=== PATIENT | female | born 1985 | race Caucasian/White ===

== ENCOUNTER 2018-12-20 14:40 | Outpatient (REF) | payer MEDICAID, SELFPAY ==
--- NOTE | 2018-12-20 14:20 | PAPFT_PTH ---
PATIENT: DUYEN GROSS LOC: [facility] U#:[id number] AGE/SX: 33/F ROOM: RE12/20/[address]: Manjula Rodrigues : 1985 BED: DIS: 12/20/2018 SPEC #: [id number] RECD: 12/21/18 12:39 STATUS: CLAUDETTE REQ #: [id number] VIOLETA: 12/20/18 14:[address]: Manjula Rodrigues DEPT: [facility] Cytology RECD BY: Alanna Fairchild ENTERED: 12/21/18 12:40 SP TYPE: PAPFT OTHR DR: Glenn Matamoros Tissues: 1 - CX/ENDOCX FOR PAP SMEARS Procedures: PAP THIN PREP/[facility] Screening Comments: [id number] (UNSATISFACTORY FOR EVALUATION)
[2018-12-20 21:38] LABS: Absolute Basophil Count 0.02 k/cumm (0.0-0.2); Absolute Monocyte Count 0.49 k/cumm (0.11-0.7); Absolute Neutrophil Count 3.73 k/cumm (1.2-6.7); Basophils % 0.3; Eosinophils % 2.9; HCT 39.7 % (36.0-46.0); HGB 13.2 g/dL (12.0-15.5); Lymphocytes % 35.1; Mean Corp. HGB Concentration 33.2 g/dL (32.0-36.0); Mean Corpuscular Hemoglobin 30.1 pg (27.0-33.0); Mean Corpuscular Volume 90.6 fL (80-95); Mean Platelet Volume 11.1 fL (8.0-11.0); Monocytes % 7.2; Neutrophils % 54.5; Platelet Count 306 x1000/uL (130-400); RBC 4.38 m/cumm (4.00-5.20); RBC Distribution Width 13.5 % (11.7-14.6); White Blood Cell Count 6.84 k/cumm (4.4-10.8)
== END 2018-12-20 15:00 ==
LOC: NCHCN 14:40
PROVIDERS: PCP Family Medicine; Visit Provider Registered Nurse
DX: R82.90 Unspecified abnormal findings in urine (principal); R10.9 Unspecified abdominal pain; K62.5 Hemorrhage of anus and rectum; Z77.120 Contact with and (suspected) exposure to mold (toxic); Z12.4 Encounter for screening for malignant neoplasm of cervix; Z11.51 Encounter for screening for human papillomavirus (HPV)
CPT/HCPCS: 88142; 85025; 87086; 87624